=== PATIENT | male | born 1970 | race Caucasian/White ===

== ENCOUNTER 2017-05-27 21:34 | Inpatient (IN) ==
[2017-05-27 22:51] LABS: Basophils # 0.1 10*3/uL (0.0-0.2); Basophils % 0.7 % (0.0-0.8); Eosinophils # 0.1 10*3/uL (0.0-0.87); Hematocrit 43.9 VOL% (42.0-52.0); Hemoglobin 15.3 GM/DL (14.0-18.0); Immature Granulocytes % 0.5 %; Immature Granulocytes Absolute 0.07 #; Lymphocytes # 1.7 10*3/uL (1.4-4.0); Lymphocytes % 11.7 % (21.2-54.2); Mean Corpuscular HGB Conc 34.9 GM/DL (32-36); Mean Corpuscular Hemoglobin 29 PG (27-34); Mean Corpuscular Volume 84.4 FL (87-102); Mean Platelet Volume 8.8 FL (9.6-12.0); Monocytes # 1.1 10*3/uL (0.11-0.8); Monocytes % 7.5 % (1.7-12.7); Neutrophils # 11.2 10*3/uL (1.4-7.4); Neutrophils % 78.6 % (38.7-73.9); Platelet Count 302 T/CUMM (130-400); Red Cell Distribution Width 13.2 % (9.3-17.3); White Blood Count 14.2 T/CUMM (4-12)
[2017-05-27] MEDS ORDERED: SODIUM CHLORIDE 0.9% 1,000 ML IV STA (23:13)
[2017-05-27] MEDS ORDERED: ONDANSETRON 4 MG/2 ML VIAL ONE (23:15)
[2017-05-27] MEDS ORDERED: ONDANSETRON 4 MG/2 ML VIAL IV STA (23:19)
[2017-05-27 23:20] LABS: Calcium 9.4 MG/DL (8.5-10.1); Magnesium 1.5 MG/DL (1.8-2.4); Osmolality,Calculated 278.1 MOS/KG (273-304); Potassium 4.4 MMOL/L (3.5-5.1)
[2017-05-28] MEDS ORDERED: MAGNESIUM SULF RIDER 2 GM in PREMIX 1 EACH IV STA (00:14)
[2017-05-28] MEDS ORDERED: MAGNESIUM SULF RIDER 50 ML IV ONE (01:04)
[2017-05-28] MEDS ORDERED: SODIUM CHLORIDE 0.9% 1,000 ML IV STA ×2 (01:21→04:17)
[2017-05-28] MEDS ORDERED: LORazepam 2 MG/1 ML VIAL IV ONE (01:22)
[2017-05-28] MEDS ORDERED: LORazepam 2 MG/1 ML VIAL ONE (01:29)
[2017-05-28] MEDS ORDERED: DEXTROSE 50% 25 GM/50 ML VIAL IV PRN (03:03)
[2017-05-28] MEDS ORDERED: GLUCAGON 1 MG VIAL IM PRN (03:03)
[2017-05-28] MEDS ORDERED: ONDANSETRON 4 MG/2 ML VIAL IV PRN (03:03)
[2017-05-28] MEDS ORDERED: SODIUM CHLORIDE 0.9% 1,000 ML IV SCH (03:30)
[2017-05-28 06:22] LABS: Basophils # 0.1 10*3/uL (0.0-0.2); Basophils % 1.1 % (0.0-0.8); Eosinophils # 0.2 10*3/uL (0.0-0.87); Eosinophils % 1.9 % (0.00-10.9); Hemoglobin 11.9 GM/DL (14.0-18.0); Immature Granulocytes % 0.4 %; Immature Granulocytes Absolute 0.04 #; Lymphocytes # 2.2 10*3/uL (1.4-4.0); Lymphocytes % 20.7 % (21.2-54.2); Mean Corpuscular Hemoglobin 30 PG (27-34); Mean Corpuscular Volume 87.3 FL (87-102); Mean Platelet Volume 9.2 FL (9.6-12.0); Monocytes # 0.9 10*3/uL (0.11-0.8); Monocytes % 8.8 % (1.7-12.7); Neutrophils % 67.1 % (38.7-73.9); Platelet Count 267 T/CUMM (130-400); Red Blood Count 4.01 MC/CUMM (3.8-5.5); Red Cell Distribution Width 13.3 % (9.3-17.3); White Blood Count 10.5 T/CUMM (4-12)
[2017-05-28 06:29] LABS: INR 1.5; PT Patient Result 15.6 SECS; Partial Thromboplastin Time 31.5 SECS (0-40)
[2017-05-28 06:38] LABS: Osmolality,Calculated 280.5 MOS/KG (273-304); Potassium 4.2 MMOL/L (3.5-5.1)
[2017-05-28 06:40] LABS: Albumin 2.9 G/DL (3.4-5.0); Bilirubin,Direct 0.14 MG/DL (0.0-0.20); Bilirubin,Indirect 0.7 MG/DL (0.0-1.0); Bilirubin,Total 0.8 MG/DL (0.2-1.0); Total Protein 5.6 G/DL (6.4-8.3)
[2017-05-28 06:45] LABS: Risk Ratio 3.67; VLDL CHOLESTEROL 31.6 MG/DL
[2017-05-28] MEDS ORDERED: PNEUMOCOCCAL VACCINE (23 VALENT) 0.5 ML VIAL IM ONE (06:46)
[2017-05-28 07:02] LABS: Barbiturates Screen,Urine Negative (Negative); Benzodiazepines Screen,Urine Positive (Negative); Cannabinoid Screen,Urine Negative (Negative); Opiate Screen,Urine Negative (Negative); Phencyclidine Screen,Urine Negative (Negative)
[2017-05-28] MEDS ORDERED: LABETALOL 20 MG/4 ML SYRINGE IV PRN (08:44)
[2017-05-28] MEDS ORDERED: PANTOPRAZOLE 40 MG TABLET PO SCH (09:00)
[2017-05-28] MEDS ORDERED: ASPIRIN EC 81 MG TABLET PO SCH (09:00)
[2017-05-28] MEDS ORDERED: ENOXAPARIN 40 MG/0.4 ML SYRINGE SUBCUT SCH (09:00)
[2017-05-28] MEDS: INSULIN LISPRO 100 UNIT/ML SUBCUT SCH ×2 (10:24→13:19)
[2017-05-28] MEDS ORDERED: ENOXAPARIN 60 MG/0.6 ML SYRINGE SUBCUT SCH (11:30)
[2017-05-28 13:24] VITALS: BP 97/64
[2017-05-28] MEDS ORDERED: GABAPENTIN 400 MG CAPSULE PO SCH (13:32)
[2017-05-28] MEDS ORDERED: WARFARIN 3 MG TABLET PO SCH (18:00)
[2017-05-28] MEDS ORDERED: ROSUVASTATIN 20 MG TABLET PO SCH (21:00)
== END 2017-05-28 14:50 | disposition hospice, home (50) | DRG 65 ==
LOC: N.ED 21:34 → N.EDINP 05-28 03:03 → N.5E 05-28 04:26
PROVIDERS: ADMIT Internal Medicine; ATTEND Internal Medicine

== ENCOUNTER 2019-06-21 07:52 | Inpatient (IN) ==
[2019-06-21 09:05] LABS: Basophils # 0.1 10*3/uL (0.0-0.2); Basophils % 0.9 % (0.0-0.8); Eosinophils # 0.1 10*3/uL (0.0-0.87); Eosinophils % 1.2 % (0.00-10.9); Hematocrit 22.6 VOL% (42.0-52.0); Immature Granulocytes % 0.6 %; Immature Granulocytes Absolute 0.06 #; Lymphocytes # 1.5 10*3/uL (1.4-4.0); Mean Platelet Volume 8.4 FL (9.6-12.0); Monocytes % 6.6 % (1.7-12.7); Neutrophils % 75.7 % (38.7-73.9); Platelet Count 545 T/CUMM (130-400); Red Blood Count 2.51 MC/CUMM (3.8-5.5); Red Cell Distribution Width 17.7 % (9.3-17.3); White Blood Count 9.9 T/CUMM (4-12)
[2019-06-21 09:12] LABS: INR 0.9
[2019-06-21 09:16] LABS: Alanine Aminotransferase 18 U/L (16-61); Albumin 2.1 G/DL (3.4-5.0); Alkaline Phosphatase 92 U/L (45-117); Aspartate Amino Transferase 20 U/L (0-37); Bilirubin,Total < 0.39 MG/DL (0.2-1.0); Blood Urea Nitrogen 12 MG/DL (7-18); Calcium 8.2 MG/DL (8.5-10.1); Estimated Glom Filtration Rate 93 ML/MIN; Glucose 158 MG/DL (74-106); Osmolality,Calculated 268.4 MOS/KG (273-304); Total Protein 5.5 G/DL (6.4-8.3)
[2019-06-21] MEDS ORDERED: SODIUM CHLORIDE 0.9% 1,000 ML IV STA (09:38)
[2019-06-21] MEDS ORDERED: GLUCAGON 1 MG VIAL IM PRN (11:20)
[2019-06-21] MEDS ORDERED: LACTULOSE 20 GM/30 ML UDCUP PO PRN (11:20)
[2019-06-21] MEDS ORDERED: DEXTROSE 10% 25 GM/250 ML BAG IV PRN (11:20)
[2019-06-21] MEDS ORDERED: ONDANSETRON 4 MG/2 ML VIAL IV PRN (11:20)
[2019-06-21] MEDS ORDERED: ACETAMINOPHEN 325 MG TABLET PO PRN (11:20)
[2019-06-21] MEDS ORDERED: SODIUM CHLORIDE 0.9% 1,000 ML IV PRN (11:30)
[2019-06-21] MEDS ORDERED: LORazepam 2 MG/1 ML VIAL ONE (12:55)
[2019-06-21] MEDS ORDERED: LORazepam 2 MG/1 ML VIAL IV STA (13:12)
[2019-06-21] MEDS: GABAPENTIN 100 MG CAPSULE PO SCH (16:09)
[2019-06-21] MEDS: INSULIN LISPRO 100 UNIT/ML SUBCUT SCH ×2 (16:10→22:46)
[2019-06-21] MEDS: GABAPENTIN 300 MG CAPSULE PO SCH (20:58)
[2019-06-21 21:06] LABS: Apearance,Urine CLEAR (Clear); Bilirubin,Urine Negative (Negative); Blood, Urine Negative (Negative); Glucose,Urine (UA) 50 mg/dL (Negative); Ketones,Urine Negative (Negative); Mucus,Urine Occasional /LPF (Occasional); Nitrite,Urine Negative (Negative); Protein,Urine Negative; RBC,Urine 1 /HPF (0-4); Urine Color Straw (Yellow); Urine Specific Gravity 1.014 (1.001-1.035); Urine Urobilinogen < 2.0 EU/DL (0.2-1.0); WBC,Urine <1 /HPF (0-6)
[2019-06-21 21:09] LABS: Barbiturates Screen,Urine Negative (Negative); Benzodiazepines Screen,Urine Negative (Negative); Cannabinoid Screen,Urine Negative (Negative); Opiate Screen,Urine Negative (Negative); Phencyclidine Screen,Urine Negative (Negative)
[2019-06-22 01:09] LABS: Hematocrit 24.9 VOL% (42.0-52.0)
[2019-06-22 05:27] LABS: Basophils # 0.1 10*3/uL (0.0-0.2); Basophils % 0.7 % (0.0-0.8); Eosinophils # 0.2 10*3/uL (0.0-0.87); Eosinophils % 1.8 % (0.00-10.9); Hematocrit 25.2 VOL% (42.0-52.0); Hemoglobin 8.1 GM/DL (14.0-18.0); Immature Granulocytes % 0.4 %; Immature Granulocytes Absolute 0.04 #; Lymphocytes # 1.7 10*3/uL (1.4-4.0); Lymphocytes % 17.8 % (21.2-54.2); Mean Corpuscular HGB Conc 32.1 GM/DL (32-36); Mean Corpuscular Volume 88.4 FL (87-102); Mean Platelet Volume 8.6 FL (9.6-12.0); Monocytes % 8.1 % (1.7-12.7); Neutrophils % 71.2 % (38.7-73.9); Platelet Count 434 T/CUMM (130-400); Red Blood Count 2.85 MC/CUMM (3.8-5.5); Red Cell Distribution Width 16.2 % (9.3-17.3); White Blood Count 9.4 T/CUMM (4-12)
[2019-06-22 05:50] LABS: Calcium 7.8 MG/DL (8.5-10.1); Osmolality,Calculated 269.2 MOS/KG (273-304)
[2019-06-22] MEDS: INSULIN LISPRO 100 UNIT/ML SUBCUT SCH ×3 (08:03→21:36)
[2019-06-22] MEDS ORDERED: SODIUM CHLORIDE 0.9% 1,000 ML IV PRN (08:09)
[2019-06-22] MEDS: GABAPENTIN 100 MG CAPSULE PO SCH ×2 (08:54→16:49)
[2019-06-22] MEDS: THIAMINE 100 MG TABLET PO SCH (08:55)
[2019-06-22] MEDS: PANTOPRAZOLE 40 MG VIAL IV SCH (08:55)
[2019-06-22] MEDS: FLUTICASONE 50 MCG NASAL SPRAY 16 GM BOTTLE BOTH NARES SCH (21:18)
[2019-06-22] MEDS: GABAPENTIN 300 MG CAPSULE PO SCH (21:18)
[2019-06-22 23:40] LABS: Hematocrit 33.9 VOL% (42.0-52.0); Hemoglobin 11.1 GM/DL (14.0-18.0)
[2019-06-23 05:55] LABS: Basophils # 0.1 10*3/uL (0.0-0.2); Basophils % 0.6 % (0.0-0.8); Eosinophils # 0.3 10*3/uL (0.0-0.87); Eosinophils % 2.6 % (0.00-10.9); Hematocrit 35.3 VOL% (42.0-52.0); Hemoglobin 11.7 GM/DL (14.0-18.0); Immature Granulocytes % 0.5 %; Immature Granulocytes Absolute 0.05 #; Lymphocytes # 1.4 10*3/uL (1.4-4.0); Lymphocytes % 13.6 % (21.2-54.2); Mean Corpuscular HGB Conc 33.1 GM/DL (32-36); Mean Corpuscular Volume 86.9 FL (87-102); Mean Platelet Volume 8.3 FL (9.6-12.0); Monocytes % 7.6 % (1.7-12.7); Neutrophils % 75.1 % (38.7-73.9); Platelet Count 409 T/CUMM (130-400); Red Blood Count 4.06 MC/CUMM (3.8-5.5); Red Cell Distribution Width 15.9 % (9.3-17.3); White Blood Count 10.1 T/CUMM (4-12)
[2019-06-23 06:23] LABS: Osmolality,Calculated 271.2 MOS/KG (273-304)
[2019-06-23 07:58] VITALS: BP 106/64
[2019-06-23] MEDS: PANTOPRAZOLE 40 MG VIAL IV SCH (08:50)
[2019-06-23] MEDS: THIAMINE 100 MG TABLET PO SCH (08:50)
[2019-06-23] MEDS: FLUTICASONE 50 MCG NASAL SPRAY 16 GM BOTTLE BOTH NARES SCH (08:50)
[2019-06-23] MEDS: GABAPENTIN 100 MG CAPSULE PO SCH (08:50)
[2019-06-23] MEDS: INSULIN LISPRO 100 UNIT/ML SUBCUT SCH (08:55)
== END 2019-06-23 10:15 | disposition home or self-care (01) | DRG 381 ==
LOC: N.ED 07:52 → N.EDINP 11:20 → N.5E 12:30
PROVIDERS: ADMIT Internal Medicine; ATTEND Internal Medicine

== ENCOUNTER 2019-07-30 07:30 | Observation (INO) ==
[2019-07-30] MEDS ORDERED: SODIUM CHLORIDE 0.9% 1,000 ML IV STA (07:55)
[2019-07-30] MEDS ORDERED: PANTOPRAZOLE 40 MG VIAL IV STA (07:55)
[2019-07-30] MEDS ORDERED: ONDANSETRON 4 MG/2 ML VIAL IV STA ×2 (07:55→10:05)
[2019-07-30 08:30] LABS: Basophils # 0.1 10*3/uL (0.0-0.2); Basophils % 0.3 % (0.0-0.8); Hemoglobin 15.1 GM/DL (14.0-18.0); Immature Granulocytes % 0.4 %; Immature Granulocytes Absolute 0.08 #; Lymphocytes % 5.5 % (21.2-54.2); Mean Corpuscular HGB Conc 31.5 GM/DL (32-36); Mean Corpuscular Volume 87.6 FL (87-102); Mean Platelet Volume 9.2 FL (9.6-12.0); Monocytes % 8.3 % (1.7-12.7); Neutrophils % 85.5 % (38.7-73.9); Platelet Count 352 T/CUMM (130-400); Red Blood Count 5.48 MC/CUMM (3.8-5.5); Red Cell Distribution Width 16.2 % (9.3-17.3); White Blood Count 18.9 T/CUMM (4-12)
[2019-07-30 08:40] LABS: INR 1.1; PT Patient Result 12.1 SECS (9.6-12.2); Partial Thromboplastin Time 25.9 SECS (20.8-36.0)
[2019-07-30 08:49] LABS: Albumin 3.5 G/DL (3.4-5.0); Bilirubin,Total 1.6 MG/DL (0.2-1.0); Calcium 9.3 MG/DL (8.5-10.1); Osmolality,Calculated 276.7 MOS/KG (273-304); Total Protein 7.8 G/DL (6.4-8.3)
[2019-07-30] MEDS ORDERED: ONDANSETRON 4 MG/2 ML VIAL IV PRN (11:19)
[2019-07-30] MEDS ORDERED: hydrALAZINE 20 MG/1 ML VIAL IV PRN (11:19)
[2019-07-30] MEDS ORDERED: LACTULOSE 20 GM/30 ML UDCUP PO PRN (11:19)
[2019-07-30] MEDS ORDERED: THIAMINE INJ 100 MG, FOLIC ACID INJ 1 MG, MULTIVITAMIN INJ 10 ML in SODIUM CHLORIDE 0.9... IV ONE (11:20)
[2019-07-30] MEDS ORDERED: chlordiazePOXIDE 10 MG CAPSULE PO PRN (11:21)
[2019-07-30] MEDS ORDERED: PANTOPRAZOLE INJ 200 MG in SODIUM CHLORIDE 0.9% 250 ML IV SCH (11:30)
[2019-07-30] MEDS ORDERED: GLUCAGON 1 MG VIAL IM PRN (11:31)
[2019-07-30] MEDS ORDERED: DEXTROSE 10% 250 ML BAG IV PRN (11:31)
[2019-07-30] MEDS: POTASSIUM CHLORIDE RIDER 10 MEQ in PREMIX 1 EACH IV PRN ×4 (15:00→18:15)
[2019-07-30] MEDS: INSULIN REGULAR 100 UNIT/ML SUBCUT SCH ×2 (15:43→22:15)
[2019-07-30] MEDS ORDERED: chlorproMAZINE 25 MG TABLET PO PRN (16:28)
[2019-07-30 17:49] LABS: Hematocrit 42.1 VOL% (42.0-52.0); Hemoglobin 13.4 GM/DL (14.0-18.0)
[2019-07-30] MEDS: FLUTICASONE 50 MCG NASAL SPRAY 16 GM BOTTLE BOTH NARES SCH (18:15)
[2019-07-30] MEDS ORDERED: GABAPENTIN 300 MG CAPSULE PO SCH (21:00)
[2019-07-30] MEDS: METOPROLOL TARTRATE 25 MG TABLET PO SCH (22:16)
[2019-07-30] MEDS: SODIUM CHLORIDE 0.9% 1,000 ML IV SCH (23:37)
[2019-07-31 00:45] LABS: Hematocrit 38.5 VOL% (42.0-52.0); Hemoglobin 12.1 GM/DL (14.0-18.0)
[2019-07-31 05:30] LABS: Basophils # 0.1 10*3/uL (0.0-0.2); Basophils % 0.6 % (0.0-0.8); Eosinophils # 0.1 10*3/uL (0.0-0.87); Eosinophils % 0.9 % (0.00-10.9); Hematocrit 38.7 VOL% (42.0-52.0); Immature Granulocytes % 0.3 %; Immature Granulocytes Absolute 0.03 #; Lymphocytes # 1.6 10*3/uL (1.4-4.0); Lymphocytes % 17.3 % (21.2-54.2); Mean Corpuscular Volume 89.8 FL (87-102); Mean Platelet Volume 9.6 FL (9.6-12.0); Monocytes % 11.1 % (1.7-12.7); Neutrophils % 69.8 % (38.7-73.9); Platelet Count 238 T/CUMM (130-400); Red Blood Count 4.31 MC/CUMM (3.8-5.5); Red Cell Distribution Width 16.1 % (9.3-17.3); White Blood Count 9.3 T/CUMM (4-12)
[2019-07-31 05:41] LABS: Albumin 2.6 G/DL (3.4-5.0); Bilirubin,Total 2.3 MG/DL (0.2-1.0); Calcium 8.2 MG/DL (8.5-10.1); Osmolality,Calculated 274.8 MOS/KG (273-304); Total Protein 5.7 G/DL (6.4-8.3)
[2019-07-31] MEDS ORDERED: POTASSIUM CHLORIDE 20 MEQ TABLET PO SCH (09:00)
[2019-07-31] MEDS: METOPROLOL TARTRATE 25 MG TABLET PO SCH (09:24)
[2019-07-31] MEDS: POTASSIUM CHLORIDE RIDER 10 MEQ in PREMIX 1 EACH IV PRN (09:24)
[2019-07-31] MEDS: FLUTICASONE 50 MCG NASAL SPRAY 16 GM BOTTLE BOTH NARES SCH (09:28)
[2019-07-31] MEDS: INSULIN REGULAR 100 UNIT/ML SUBCUT SCH ×2 (09:28→16:55)
[2019-07-31] MEDS: SODIUM CHLORIDE 0.9% 1,000 ML IV SCH (09:31)
[2019-07-31 10:04] LABS: Apearance,Urine CLEAR (Clear); Bilirubin,Urine Negative (Negative); Blood, Urine Negative (Negative); Glucose,Urine (UA) 150 mg/dL (Negative); Ketones,Urine Negative (Negative); Mucus,Urine Occasional /LPF (Occasional); Nitrite,Urine Negative (Negative); Protein,Urine 100 MG/DL; RBC,Urine 1 /HPF (0-4); Squamous Epithelial Cell,Urine Occasional /HPF (0-10); Urine Color Yellow (Yellow); Urine Specific Gravity 1.014 (1.001-1.035); WBC,Urine <1 /HPF (0-6)
[2019-07-31 11:04] LABS: Hematocrit 38.9 VOL% (42.0-52.0); Hemoglobin 11.9 GM/DL (14.0-18.0)
[2019-07-31] MEDS ORDERED: MAGNESIUM SULF RIDER 2 GM in PREMIX 1 EACH IV ONE (15:04)
[2019-07-31 15:45] LABS: Hematocrit 38.1 VOL% (42.0-52.0); Hemoglobin 11.7 GM/DL (14.0-18.0)
[2019-07-31] MEDS ORDERED: PANTOPRAZOLE 40 MG TABLET PO SCH (21:00)
[2019-08-01 01:02] VITALS: BP 124/67
== END 2019-07-31 20:15 | disposition home or self-care (01) ==
LOC: N.ED 07:30 → N.EDINP 07:30 → N.2W 12:42
PROVIDERS: ADMIT Internal Medicine; ATTEND Internal Medicine